=== PATIENT | female | born 1980 | race Caucasian/White ===

== ENCOUNTER 2022-11-26 09:04 | Emergency (ER) | payer OTHER, SELFPAY ==
[2022-11-26 09:18] VITALS: BP 121/55; PULSE 98; RESP 19; TEMP 36.9; O2SAT 100; BMI 31.0
--- NOTE | 2022-11-26 09:21 | ED.BACK ---
HPI - Back Pain/Injury General Chief Complaint: Back Pain/Injury Stated Complaint: severe lower LT side back pain Time Seen by Provider: 11/26/22 09:21 History of Present Illness HPI Narrative: Patient is a 42-year-old healthy female who presents today with left lower back pain and buttock pain. She does not remember any specific injury started hurting yesterday. She was unable to get out of bed this morning. She feels like it could be sciatica she actually does not have numbness or tingling down her leg. It is not radiating around to her abdomen. She is no painful or frequent urination. Definitely hurts to touch and hurts to move. She took ibuprofen earlier in the day. Denies any changes in bowel or bladder habits. Related Data Home Medications Medication Instructions Recorded Confirmed bupropion HCl 150 mg 24 hr tablet, 150 mg PO DAILY 11/26/22 11/26/22 extended release bupropion HCl 150 mg 24 hr tablet, 300 mg PO BEDTIME 11/26/22 11/26/22 extended release desvenlafaxine succinate 100 mg 100 mg PO DAILY 11/26/22 11/26/22 tablet,extended release 24 hr lamotrigine 200 mg tablet 200 mg PO DAILY 11/26/22 11/26/22 trazodone 100 mg tablet 100 mg PO BEDTIME 11/26/22 11/26/22 Previous Rx's Medication Instructions Recorded hydrocodone 5 mg-acetaminophen 325 1 tab PO Q6H PRN pain #10 tabs 11/26/22 mg tablet methocarbamol 750 mg tablet 750 mg PO Q8H PRN muscle spasm #14 11/26/22 tabs ondansetron 4 mg disintegrating 4 mg PO Q8H PRN nausea and 11/26/22 tablet vomiting #10 tabs Allergies Allergy/AdvReac Type Severity Reaction Status Date / Time Penicillins Allergy Swelling Verified 11/26/22 09:24 of Lip/Tongue/Throat Review of Systems Review of Systems ROS Unobtainable: All systems reviewed & are unremarkable except as noted in HPI and below Patient History Social History Smoking Status: Never smoker Exam Initial Vital Signs Initial Vital Signs: Vital Signs Temperature 98.4 F 11/26/22 09:18 Pulse Rate 98 H 11/26/22 09:18 Respiratory Rate 19 11/26/22 09:18 Blood Pressure 121/55 L 11/26/22 09:18 Pulse Oximetry 100 11/26/22 09:18 Oxygen Delivery Method Room Air 11/26/22 09:18 GENERAL: Alert 42-year-old female appears uncomfortable CARDIOVASCULAR: peripheral pulses in tact, cap refill <2 sec RESPIRATORY: No respiratory distress, speaks in full sentences without difficulty ABDOMEN: Soft, nontender, no guarding or rebound BACK: Left buttock and lower lumbar pain pain is reproducible to palpation. Sensation in lower extremities intact EXTREMITIES: Normal range of motion, no clubbing or edema. Neurovascularly intact NEUROLOGICAL: Cranial nerves II through XII grossly intact. Normal gait and speech. SKIN: Warm, dry, no petechiae, no rashes or lesions. Course Orders Ordered: ED Orders 11/26/22 09:57 Ictotest Urine Stat Urinalysis and Microscopic Stat Urine Culture Stat Discontinued Medications Hydrocodone Bitart/Acetaminophen (Hydrocodone/Acet 5/325 Tablet) 1 tab PO NOW ONE Stop: 11/26/22 10:03 Last Admin: 11/26/22 10:22 Dose: 1 tab Documented By: LORY Cyclobenzaprine HCl (Cyclobenzaprine 10 Mg Tablet) 5 mg PO NOW ONE Stop: 11/26/22 10:03 Last Admin: 11/26/22 10:22 Dose: 5 mg Documented By: LORY Ondansetron HCl (Ondansetron 4 Mg Odt) 4 mg SL NOW ONE Stop: 11/26/22 10:03 Last Admin: 11/26/22 10:23 Dose: 4 mg Documented By: LORY Vital Signs Vital signs: Vital Signs - 8 hr 11/26/22 09:18 Temperature 98.4 F Pulse Rate 98 H Respiratory Rate 19 Blood Pressure 121/55 L Pulse Oximetry 100 Oxygen Delivery Method Room Air MDM - Back Pain/Injury Lab Data Labs: Lab Results 11/26/22 11/26/22 Range/Units 09:57 09:57 Urine Color Red Cancelled Urine Appearance Cloudy Cancelled Urine pH 5.5 Cancelled (4.5-8.0) Ur Specific [place] 1.025 Cancelled (1.000-1.035) Urine Protein 1+ H Cancelled (Negative) Urine Glucose (UA) Negative Cancelled (Negative) g/dL Urine Ketones Trace H Cancelled (NEGATIVE) Urine Occult Blood 3+ H Cancelled (Negative) Urine Nitrate Negative Cancelled (Negative) Urine Bilirubin 1+ H Cancelled (NEGATIVE) Ur Bilirubin Confirm Negative (Negative) Urine Urobilinogen 1.0 Cancelled (0.2) E.U./dL Ur Leukocyte Esterase 1+ H Cancelled (NEGATIVE) Urine RBC >100/hpf H Cancelled (0-5/HPF) Urine WBC 5-10/hpf H Cancelled (0-5/HPF) Ur Squamous Epith Cells 1-5 /hpf Cancelled (0-5/HPF) Ur Transition Epith Cell Cancelled Ur Renal Epithelial Cell Cancelled Calcium Oxalate Crystal Cancelled Uric Acid Crystals Cancelled Triple Phos Crystals Cancelled Other Crystals Cancelled Amorphous Sediment Cancelled Urine Bacteria Few (2-10) H Cancelled (None) Hyaline Casts Cancelled Granular Casts Cancelled RBC Casts Cancelled WBC Casts Cancelled Other Casts Cancelled Urine Mucus Cancelled Urine Trichomonas Cancelled Urine Yeast Cancelled Urine Sperm Cancelled Ur Culture Indicated? Specimen cultured Cancelled Micro UA Comment Cancelled Point of Care Testing Test Results Negative MDM Narrative Medical decision making narrative: Patient is 42-year-old female who presents with left buttock pain. Does not remember any specific injury but definitely worse with specific movements and sometimes palpation. No concern for cauda equina at this time probably a piriformis sacral like issue. We discussed stretches heating pad and pain control. She is given [place] and Flexeril here in the ED she took ibuprofen prior to arrival. She has hematuria on her menstrual cycle no painful or frequent urination. No concern for nephrolithiasis she has no flank pain. At this time most likely diagnosis is musculoskeletal back strain. Discharge Plan Departure Patient Disposition: Home Clinical Impression: Strain of lumbar region Instructions: DI for Back Spasm, DI for Back Strain or Sprain Activity Restrictions/Additional Instructions: *You have been diagnosed with back pain *What to do: Recommend heating pad, light activity, light stretches *Continue to take medications as directed--> [facility] Ibuprofen 600 mg every 6 hours if needed for [id number] pain [place] 1-2 tablets every 6 hours if needed for severe pain Methocarbamol 750 mg every 12 hours if needed for muscle spasm Zofran 4 mg every 8 hours if needed for nausea vomiting *Follow up with your primary care provider in 2-3 days or call [phone] *Return to ER if you should have increasing pain numbness tingling weakness changes in bowel habits or any new, worsening or concerning symptoms CONTROLLED SUBSTANCE DISCHARGE (Narcotoic/benzodiazepine/Flexeril/Phenergan) 1. You have been prescribed narcotic medications, it does have acetaminophen/Tylenol/paracetamol in it, DO NOT TAKE MORE THAN 4,00mg in 24 hours of Tylenol. TRAMADOL DOES NOT CONTAIN TYLENOL 2. Please understand that we cannot provide further refills of narcotics, benzodiazepines or controlled substances through the ED and her pain management will need to be through your provider. 3. While on these medications you cannot drive or operate heavy machinery. 4. You cannot sign legal documents or perform any duties such as this. 5. As long as you're taking opiate pain medications he should also be taking a stool softener such as Colace, Dulcolax, MiraLAX or prune juice, to help avoid constipation. Prescriptions: New hydrocodone-acetaminophen 5-325 mg tablet 1 tab PO Q6H PRN (Reason: pain) Qty: 10 0RF methocarbamol 750 mg tablet 750 mg PO Q8H PRN (Reason: muscle spasm) Qty: 14 0RF ondansetron 4 mg tablet,disintegrating 4 mg PO Q8H PRN (Reason: nausea and vomiting) Qty: 10 0RF No Action trazodone 100 mg tablet 100 mg PO BEDTIME Patient Comments: TAKE 1 TO 2 TABLETS BY MOUTH AT BEDTIME bupropion HCl 150 mg tablet extended release 24 hr 300 mg PO BEDTIME Patient Comments: take 1 tablet by mouth every morning WITH 300 MG TABLET desvenlafaxine succinate 100 mg tablet extended release 24 hr 100 mg PO DAILY Patient Comments: take 1 tablet by mouth once daily lamotrigine 200 mg tablet 200 mg PO DAILY Patient Comments: take 1 tablet by mouth once daily bupropion HCl 150 mg tablet extended release 24 hr 150 mg PO DAILY Patient Comments: take 1 tablet by mouth every morning WITH 300 MG TABLET Referrals: Miscellaneous,Doctor, MD [Primary Care Provider] - Stand Alone Forms: Patient Portal/API
[2022-11-26] MEDS: HYDROCODONE/ACET 5/325 TABLET 1 TAB PO (10:22)
[2022-11-26] MEDS: CYCLOBENZAPRINE 10 MG TABLET 5 MG PO (10:22)
[2022-11-26] MEDS: ONDANSETRON 4 MG ODT SL (10:23)
[2022-11-26 10:24] LABS: Appearance Urine UA CLOUDY; Bilirubin Urine UA 1+ (NEGATIVE); Color Urine UA RED; Glucose Urine UA NEGATIVE (Negative); Ketones Urine UA TRACE (NEGATIVE); Leukocyte Esterase Urine UA 1+ (NEGATIVE); Nitrite Urine UA NEGATIVE (Negative); Occult Blood Urine UA 3+ (Negative); Protein Urine UA 1+ (Negative); Specific Gravity Urine UA 1.025 (1.000-1.035); pH Urine UA 5.5 (4.5-8.0)
[2022-11-26 10:26] LABS: Ictotest Urine Negative (Negative); RBC Urine >100/HPF (0-5/HPF)
[2022-11-26 10:27] LABS: Bacteria Urine Few (2-10); Culture Indicated Urine Specimen Cultured; Squamous Epithelial Cell Urine 1-5 /HPF (0-5/HPF); WBC Urine 5-10/HPF (0-5/HPF)
== END 2022-11-26 10:40 | disposition home or self-care (01) ==
PROVIDERS: Emergency Provider Emergency Medicine
DX: S39.012A Strain of muscle, fascia and tendon of lower back, initial encounter (principal); X58.XXXA Exposure to other specified factors, initial encounter
CPT/HCPCS: 81001; 81025; 87086; 99283

== ENCOUNTER 2022-12-01 13:01 | Emergency (ER) | payer OTHER, SELFPAY ==
[2022-12-01 13:05] VITALS: BP 128/72; PULSE 83; RESP 18; TEMP 36.4; O2SAT 99; BMI 31.0
--- NOTE | 2022-12-01 13:23 | DI.RAD.S_ITS ---
PROCEDURE: XR LUMBAR SPINE 2-3V INDICATIONS: Worsening low back pain left-sided radiculopathy TECHNIQUE: 3 views of the lumbar spine were acquired. COMPARISON: None. FINDINGS: Bones: 5 [id number] vertebrae are present. There is normal bony alignment. No vertebral body compression fractures. No suspicious bony lesions. Soft tissues: Overlying bowel gas pattern is normal. No suspicious soft tissue calcifications. IMPRESSION: Unremarkable lumbar spine radiographs Approved by: Anatoly Erickson M.D. on 12/01/2022 at 13:23
--- NOTE | 2022-12-01 13:38 | ED.BACK ---
HPI - Back Pain/Injury <Claudette Alexis, [facility] - Last Filed: 12/01/22 16:06> General Chief Complaint: Back Pain/Injury Stated Complaint: lower back pain Time Seen by Provider: 12/01/22 13:11 History of Present Illness HPI Narrative: This is a 42-year-old female returns to emergency department with worsening low back pain now with worsening sciatica symptoms down her left leg without known trigger. She states that she was seen in the emergency department on 11/26/2022 for low back pain, she was prescribed hydrocodone and a muscle relaxer but with her normal activities yesterday and starting to work out again she develop worsening sciatica symptoms going down her leg, she states that she can barely move or walk because of the spasms and sharp pain she feels with shooting pain down her leg. She denies fever, chills, urinary frequency or urgency, denies incontinence or any stool changes. Denies any upper respiratory symptoms. Denies any rash. Denies weakness. Denies history of substance abuse. States that she is not , her was checked the last time she was here few days ago Related Data Home Medications Medication Instructions Recorded Confirmed bupropion HCl 150 mg 24 hr tablet, 150 mg PO DAILY 11/26/22 11/26/22 extended release bupropion HCl 150 mg 24 hr tablet, 300 mg PO BEDTIME 11/26/22 11/26/22 extended release desvenlafaxine succinate 100 mg 100 mg PO DAILY 11/26/22 11/26/22 tablet,extended release 24 hr lamotrigine 200 mg tablet 200 mg PO DAILY 11/26/22 11/26/22 trazodone 100 mg tablet 100 mg PO BEDTIME 11/26/22 11/26/22 Previous Rx's Medication Instructions Recorded hydrocodone 5 mg-acetaminophen 325 1 tab PO Q6H PRN pain #10 tabs 11/26/22 mg tablet methocarbamol 750 mg tablet 750 mg PO Q8H PRN muscle spasm #14 11/26/22 tabs ondansetron 4 mg disintegrating 4 mg PO Q8H PRN nausea and 11/26/22 tablet vomiting #10 tabs gabapentin 100 mg capsule 100 mg PO TID PRN Sciatica/nerve 12/01/22 pain #40 caps hydrocodone 5 mg-acetaminophen 325 1 tab PO Q6H PRN pain #10 tabs 12/01/22 mg tablet lidocaine 5 % topical patch 1 patch topical DAILY PRN back 12/01/22 (Lidoderm) pain #30 ea ondansetron 4 mg disintegrating 4 mg PO Q8H PRN nausea and 12/01/22 tablet vomiting #10 tabs polyethylene glycol 3350 17 17 g PO DAILY constipation #238 12/01/22 gram/dose oral powder (Miralax) grams Allergies Allergy/AdvReac Type Severity Reaction Status Date / Time Penicillins Allergy Swelling Verified 12/01/22 13:08 of Lip/Tongue/Throat Review of Systems <DALIA Matias - Last Filed: 12/01/22 16:06> Review of Systems ROS Unobtainable: All systems reviewed & are unremarkable except as noted in HPI and below Patient History <DALIA Matias - Last Filed: 12/01/22 16:06> Social History Smoking Status: Never smoker Smoking Status: Never smoker alcohol intake frequency: holidays/special occasions only Substance Use Type: does not use Exam <DALIA Matias - Last Filed: 12/01/22 16:06> Narrative Exam Narrative: Reviewed vitals signs and nursing notes. General: Pleasant, sitting upright, appears uncomfortable, is tearful, sitting upright in wheelchair well groomed, afebrile HEENT: symmetrical facial expressions, moist mucous membranes, neck is supple CV: regular rate and rhythm, warm extremities Respiratory: normal work of breathing, without tachypnea or hypoxia. GI: abdomen soft, nondistended, without CVA tenderness bilaterally. MSK: moves all extremities, no weakness, normal tone, ambulatory without deficit, nontender along her lumbar and sacral spine, no step-offs, without decreased reflexes, left leg lift exacerbate symptoms in her low back causing pain Skin: brisk capillary refill, without rash or wound Neuro: clear speech and normal cognition, A&O x3, GCS 15, no focal motor or sensation deficits Initial Vital Signs Initial Vital Signs: Vital Signs Temperature 97.6 F 12/01/22 13:05 Pulse Rate 83 12/01/22 13:05 Respiratory Rate 18 12/01/22 13:05 Blood Pressure 128/72 12/01/22 13:05 Pulse Oximetry 99 12/01/22 13:05 Oxygen Delivery Method Room Air 12/01/22 13:05 <Peterson Louise DO - Last Filed: 12/07/22 01:46> Initial Vital Signs Initial Vital Signs: Vital Signs Temperature 97.6 F 12/01/22 13:05 Pulse Rate 83 12/01/22 13:05 Respiratory Rate 18 12/01/22 13:05 Blood Pressure 128/72 12/01/22 13:05 Pulse Oximetry 99 12/01/22 13:05 Oxygen Delivery Method Room Air 12/01/22 13:05 Course <DALIA Matias - Last Filed: 12/01/22 16:06> Orders Ordered: Discontinued Medications Gabapentin (Gabapentin 100 Mg Capsule) 100 mg PO NOW ONE Stop: 12/01/22 13:20 Last Admin: 12/01/22 14:06 Dose: 100 mg Documented By: VANESA Ketorolac Tromethamine (Ketorolac 30 Mg/Ml Vial) 30 mg IM NOW ONE Stop: 12/01/22 13:20 Last Admin: 12/01/22 13:44 Dose: 30 mg Documented By: VANESA Lidocaine (Lidocaine Patch 1 Each Adh..Patch) 1 each TOP NOW ONE Stop: 12/01/22 13:20 Last Admin: 12/01/22 13:44 Dose: 1 each Documented By: VANESA Ondansetron HCl (Ondansetron 4 Mg Odt) 4 mg SL NOW ONE Stop: 12/01/22 14:14 Last Admin: 12/01/22 14:23 Dose: Not Given Documented By: VANESA Oxycodone/Acetaminophen (Oxycodone/Acetaminophen 5/325 Tablet) 1 tab PO NOW ONE Stop: 12/01/22 13:20 Last Admin: 12/01/22 13:46 Dose: 1 tab Documented By: VANESA Prednisone (Prednisone 20 Mg Tablet) 60 mg PO NOW ONE Stop: 12/01/22 13:20 Last Admin: 12/01/22 13:45 Dose: 60 mg Documented By: VANESA Vital Signs Vital signs: Vital Signs - 8 hr 12/01/22 13:05 12/01/22 14:38 Temperature 97.6 F Pulse Rate 83 73 Respiratory Rate 18 18 Blood Pressure 128/72 100/56 L Pulse Oximetry 99 99 Oxygen Delivery Method Room Air Room Air <Peterson Louise DO - Last Filed: 12/07/22 01:46> Orders Ordered: Discontinued Medications Gabapentin (Gabapentin 100 Mg Capsule) 100 mg PO NOW ONE Stop: 12/01/22 13:20 Last Admin: 12/01/22 14:06 Dose: 100 mg Documented By: VANESA Ketorolac Tromethamine (Ketorolac 30 Mg/Ml Vial) 30 mg IM NOW ONE Stop: 12/01/22 13:20 Last Admin: 12/01/22 13:44 Dose: 30 mg Documented By: VANESA Lidocaine (Lidocaine Patch 1 Each Adh..Patch) 1 each TOP NOW ONE Stop: 12/01/22 13:20 Last Admin: 12/01/22 13:44 Dose: 1 each Documented By: VANESA Ondansetron HCl (Ondansetron 4 Mg Odt) 4 mg SL NOW ONE Stop: 12/01/22 14:14 Last Admin: 12/01/22 14:23 Dose: Not Given Documented By: VANESA Oxycodone/Acetaminophen (Oxycodone/Acetaminophen 5/325 Tablet) 1 tab PO NOW ONE Stop: 12/01/22 13:20 Last Admin: 12/01/22 13:46 Dose: 1 tab Documented By: VANESA Prednisone (Prednisone 20 Mg Tablet) 60 mg PO NOW ONE Stop: 12/01/22 13:20 Last Admin: 12/01/22 13:45 Dose: 60 mg Documented By: VANESA Vital Signs Vital signs: Vital Signs - 8 hr 12/01/22 13:05 12/01/22 14:38 Temperature 97.6 F Pulse Rate 83 73 Respiratory Rate 18 18 Blood Pressure 128/72 100/56 L Pulse Oximetry 99 99 Oxygen Delivery Method Room Air Room Air MDM - Back Pain/Injury <DALIA Matias - Last Filed: 12/01/22 16:06> Lab Data Labs: Lab Results 12/01/22 Range/Units 14:22 Urine RBC 1-5/hpf D (0-5/HPF) Urine WBC 0-1/hpf (0-5/HPF) Ur Squamous Epith Cells None seen (0-5/HPF) Urine Bacteria Occasional (0-1) (None) Ur Culture Indicated? Specimen cultured Point of Care Testing Test Results Negative Urine Dip Bedside Urine Glucose Negative Bedside Urine Bilirubin - Negative Bedside Urine Ketone - Negative Urine Specific Paxton 1.010 Bedside Urine Occult Blood - Negative Bedside Urine pH 8.0 Bedside Urine Protein - Negative Bedside Urine Urobilinogen - Negative Bedside Urine Nitrite - Negative Bedside Urine Leukocytes - Negative Esterase Imaging Data Lumbar xr: Radiologist's Impression: PROCEDURE:? XR LUMBAR SPINE 2-3V ? INDICATIONS:? Worsening low back pain left-sided radiculopathy ? TECHNIQUE:? 3 views of the lumbar spine were acquired.? ? COMPARISON:? None. ? FINDINGS:? ? Bones:? 5 [id number] vertebrae are present.? There is normal bony alignment.? No vertebral body compression fractures.? No suspicious bony lesions.? ? Soft tissues:? Overlying bowel gas pattern is normal.? No suspicious soft tissue calcifications.? ? ? IMPRESSION:? Unremarkable lumbar spine radiographs ? ? ? Approved by: Anatoly Erickson M.D. on 12/01/2022 at 13:23? MDM Narrative Medical decision making narrative: Chief Complaint: low back pain Differential diagnoses considered but not limited to: disc injury/herniation, radiculopathy, muscular sprain, chronic pain, malignancy, spondyloarthropathy, nerve compression, acute fracture, urinary tract infection, osteoarthritis, degenerative disc disease, cauda equina, osteomyelitis, epidural abscess, spinal stenosis, ligamental injury. I have reviewed the patient's vital signs and nursing notes as well as prior records if available. Prior Charts reviewed: From 11/26/2022 My interpretation of Imaging: Lumbar x-ray is negative for acute abnormality Course of care: Patient was treated with prednisone, Percocet, lidocaine patch, Toradol and gabapentin for her pain, x-rays were obtained as she is not had imaging of her lumbar spine before and her symptoms have only worsened. Considered MR but patient does not have red flag symptoms of back pain or signs of cauda equina, she does not have weakness, urinary or stool changes, fever chills. Her exam is nontender to palpation. Suspect likely musculoskeletal etiology and acute exacerbation of chronic low back pain. Patient's straight leg raise test was positive. No back pain red flags on history or physical. No history of IV substance use, or bony tenderness to palpation, no trauma, no bony tenderness to palpation, and are afebrile. No bowel or urinary incontinence or retention, no saddle anesthesia, no new/worsening distal weakness, decreased reflexes or foot drop. Pt is nontoxic appearing. Patient has soft tissue tenderness to palpation. Pt is neurovascularly intact distally, without decreased reflexes or strength, and without immunosuppression or evidence of infection, peritoneal signs, hypertensive crisis, incontinence, or meningeal signs. As patient to leave a urine sample, her last urine sample on 11/26/2022 there was large amount of blood but there was bacteria and leukocyte esterase as well. She was on her menses at that time. She states that she stood up today in the x-ray and felt lightheaded and so she will leave another urine sample for evaluation of urinary tract infection. Urine dip without concern for infection Urine microscopy is negative for abnormality Patient is recommended to establish care with a primary care provider and she was given contact information to set this up, she is given contact information for Dr. Knapp to help her with her pain as she may benefit from an MRI if her symptoms do not improve,, she was referred to [facility] for further evaluation for referral to physical therapy and/or advanced imaging as indicated. She was prescribed prednisone, gabapentin as needed, hydrocodone Patient's symptoms improved over duration of stay with above-stated therapies. Discharge diagnosis, return precautions and plan discussed with patient followed by verbalization of understanding. Social considerations that may affect disposition: none Questions are addressed and there is agreement with the plan and for follow-up with PCP and with Orthopedics for outpatient physical therapy and advanced imaging if indicated. Patient is appropriate for outpatient management. MIPS: This encounter doesn't have any diagnosis' associated with MIPS criteria. <Peterson Louise DO - Last Filed: 12/07/22 01:46> Lab Data Labs: Lab Results 12/01/22 Range/Units 14:22 Urine RBC 1-5/hpf D (0-5/HPF) Urine WBC 0-1/hpf (0-5/HPF) Ur Squamous Epith Cells None seen (0-5/HPF) Urine Bacteria Occasional (0-1) (None) Ur Culture Indicated? Specimen cultured Point of Care Testing Test Results Negative Urine Dip Bedside Urine Glucose Negative Bedside Urine Bilirubin - Negative Bedside Urine Ketone - Negative Urine Specific Pa[place] 1.010 Bedside Urine Occult Blood - Negative Bedside Urine pH 8.0 Bedside Urine Protein - Negative Bedside Urine Urobilinogen - Negative Bedside Urine Nitrite - Negative Bedside Urine Leukocytes - Negative Esterase Discharge Plan Departure Patient Disposition: Home Clinical Impression: Acute left lumbar radiculopathy Instructions: DI for Back Pain With Sciatica Activity Restrictions/Additional Instructions: *You have been diagnosed with a strain of your low back causing radiculopathy/sciatica symptoms down her left leg. When you nerve pain coming from the L2-L4 region, it typically will wrap around to the anterior thigh and right inguinal region like you have. Please take prednisone each morning with food and water, I have given you Toradol to take instead of ibuprofen every 8 hours as needed with food and water, please use pain pills and gabapentin as needed for your nerve pain. Lidocaine patches can take the edge off, use heat, gentle activity but avoid going back to the gym or working out until you are free of this flare. Any movement can trigger this to worsen at this time. Please follow-up with your primary care provider for a referral to physical therapy after you are well for ongoing help with this probable disc issue in your low back. You can follow-up with Dr. Graham from our pain management group for evaluation of this low back pain as well. The urine is perfectly clear today, please focus on hydration there is a phone number down below to call and establish care with 1 of the primary care providers. Hopefully this is helpful but a warning that it may take a considerable amount of time to get in for your 1st appointment. Please come back to the emergency department for any other needs or if your pain is not improving. Please take MiraLax twice a day until you have soft stools and then decrease to once a day and titrate for soft stools. Constipation can make all the so much worse. *What to do: *Please continue to take your regular medications as directed. [ x] New medication prescriptions sent to your pharmacy: [[facility] [ ] New medication written as a paper prescription [ ] No new medications given *Please call and schedule follow up with your primary care provider in 2-3 days, at least for an update. Let them know you were seen in the Emergency Department for the above problem. We will electronically transmit a record of today's note if your PCP or specialist is in our system. *If you do not have a primary care provider please contact [phone] to establish care with one of the [facility] primary care providers. *Return to the Emergency Department for worsening symptoms, inability to keep liquids down, fever greater than 101F, chills, or other concerning symptom. Prescriptions: New gabapentin 100 mg capsule 100 mg PO TID PRN (Reason: Sciatica/nerve pain) Qty: 40 0RF lidocaine [Lidoderm] 5 % adhesive patch,medicated 1 patch topical DAILY PRN (Reason: back pain) Qty: 30 0RF Rx Instructions: leave on most painful area for up to 12 hrs, apply to low back hydrocodone-acetaminophen 5-325 mg tablet 1 tab PO Q6H PRN (Reason: pain) Qty: 10 0RF polyethylene glycol 3350 [Miralax] 17 gram/dose powder 17 g PO DAILY Qty: 238 0RF ondansetron 4 mg tablet,disintegrating 4 mg PO Q8H PRN (Reason: nausea and vomiting) Qty: 10 0RF Rx Instructions: May worsen constipation No Action trazodone 100 mg tablet 100 mg PO BEDTIME Patient Comments: TAKE 1 TO 2 TABLETS BY MOUTH AT BEDTIME bupropion HCl 150 mg tablet extended release 24 hr 300 mg PO BEDTIME Patient Comments: take 1 tablet by mouth every morning WITH 300 MG TABLET desvenlafaxine succinate 100 mg tablet extended release 24 hr 100 mg PO DAILY Patient Comments: take 1 tablet by mouth once daily lamotrigine 200 mg tablet 200 mg PO DAILY Patient Comments: take 1 tablet by mouth once daily bupropion HCl 150 mg tablet extended release 24 hr 150 mg PO DAILY Patient Comments: take 1 tablet by mouth every morning WITH 300 MG TABLET hydrocodone-acetaminophen 5-325 mg tablet 1 tab PO Q6H PRN (Reason: pain) Qty: 10 0RF methocarbamol 750 mg tablet 750 mg PO Q8H PRN (Reason: muscle spasm) Qty: 14 0RF ondansetron 4 mg tablet,disintegrating 4 mg PO Q8H PRN (Reason: nausea and vomiting) Qty: 10 0RF Referrals: [facility] [Provider Group] (There is an office on [address] in [place]. Please follow-up for worsening.) [facility] [Outside] Iggy Graham MD [Physician] - Stand Alone Forms: Patient Portal/API <Peterson Louise DO - Last Filed: 12/07/22 01:46> Cosign ED Attending Enzo Attestation: I was immediately available in the department for consultation. Documentation has been reviewed. I agree with assessment and plan.
[2022-12-01] MEDS: LIDOCAINE PATCH 1 EACH ADH..PATCH TOP (13:44)
[2022-12-01] MEDS: KETOROLAC 30 MG/ML VIAL IM (13:44)
[2022-12-01] MEDS: predniSONE 20 MG TABLET 60 MG PO (13:45)
[2022-12-01] MEDS: OXYCODONE/ACETAMINOPHEN 5/325 TABLET 1 TAB PO (13:46)
--- NOTE | 2022-12-01 13:53 | PC.NURSE ---
Patient has questions about medications prescribed in ED and any possible interactions after administering prednisone and percocet medications. This RN stops administering meds. Pt states her home meds are trazodone, desvenlafaxine, lamotrigine, and bupropion. She is unsure of the exact doses of each of these meds. This RN called pharmacist [place] who confirmed OK to administer current prescribed medications by provider Crew.
[2022-12-01] MEDS: GABAPENTIN 100 MG CAPSULE PO (14:06)
[2022-12-01 14:38] VITALS: BP 100/56; PULSE 73; RESP 18; O2SAT 99
[2022-12-01 14:46] LABS: Bacteria Urine Occasional (0-1); RBC Urine 1-5/HPF (0-5/HPF); Squamous Epithelial Cell Urine None Seen (0-5/HPF); WBC Urine 0-1/HPF (0-5/HPF)
[2022-12-01 14:47] LABS: Culture Indicated Urine Specimen Cultured
== END 2022-12-01 14:48 | disposition home or self-care (01) ==
PROVIDERS: Emergency Provider Nurse Practitioner Critical Care Medicine
DX: M54.16 Radiculopathy, lumbar region (principal)
CPT/HCPCS: 72100; 81003; 81015; 81025; 87086; 96372; 99283; 99284; J1885

== ENCOUNTER 2023-01-24 13:28 | Emergency (ER) | payer OTHER, SELFPAY ==
[2023-01-24 13:31] VITALS: BP 130/68; PULSE 91; RESP 15; TEMP 36.7; O2SAT 99; BMI 31.1
--- NOTE | 2023-01-24 13:54 | DI.RAD.S_ITS ---
PROCEDURE: XR CHEST 2V INDICATIONS: cough, wheeze x 5 days TECHNIQUE: 2 views of the chest were acquired. COMPARISON: None. FINDINGS: Surgical changes and devices: None. Lungs and pleura: Lungs are clear. No pleural effusions or pneumothorax. Mediastinum: Mediastinal contours are normal. Heart size is normal. Bones and chest wall: No suspicious bony abnormalities. Soft tissues appear unremarkable. IMPRESSION: No acute cardiopulmonary disease. Dictated by: Karen Guzmán M.D. on 01/24/2023 at 14:37 Approved by: Karen Guzmán M.D. on 01/24/2023 at 14:37
--- NOTE | 2023-01-24 13:54 | ED_ITS ---
HPI - URI/Sore Throat <Michelle Rivas PA-C - Last Filed: 01/24/23 15:50> General Chief Complaint: Upper Respiratory Symptoms Stated Complaint: cough/SOB/whezing/pain from cough T-4 getting wors Time Seen by Provider: 01/24/23 13:47 Source: patient Mode of arrival: Ambulatory History of Present Illness HPI Narrative: Patient is a 42-year-old female who presents today with 5 days of cough, shortness of breath, and wheezing. She is a former smoker, quit approximately 10 years ago. She saw a telehealth provider 2 days ago, at which point she had a negative home COVID test, and was prescribed prednisone for 3 days. She does not feel any better after the prednisone. She is been using an albuterol inhaler at home as needed with minimal improvement in her wheezing. She reports she feels burning pain when she coughs in the middle of her chest. She endorses a fever on Friday for which she took ibuprofen and it resolved and has not recurred. She reports getting bronchitis about once a year, but has no history of asthma or COPD. She does not use albuterol except when she has this bronchitis. She presents today because she feels like she is not getting better, despite prednisone, and wonders if she may have an infection. Related Data Home Medications Medication Instructions Recorded Confirmed bupropion HCl 150 mg 24 hr tablet, 150 mg PO DAILY 11/26/22 11/26/22 extended release bupropion HCl 150 mg 24 hr tablet, 300 mg PO BEDTIME 11/26/22 11/26/22 extended release desvenlafaxine succinate 100 mg 100 mg PO DAILY 11/26/22 11/26/22 tablet,extended release 24 hr lamotrigine 200 mg tablet 200 mg PO DAILY 11/26/22 11/26/22 trazodone 100 mg tablet 100 mg PO BEDTIME 11/26/22 11/26/22 Previous Rx's Medication Instructions Recorded hydrocodone 5 mg-acetaminophen 325 1 tab PO Q6H PRN pain #10 tabs 11/26/22 mg tablet methocarbamol 750 mg tablet 750 mg PO Q8H PRN muscle spasm #14 11/26/22 tabs ondansetron 4 mg disintegrating 4 mg PO Q8H PRN nausea and 11/26/22 tablet vomiting #10 tabs gabapentin 100 mg capsule 100 mg PO TID PRN Sciatica/nerve 12/01/22 pain #40 caps hydrocodone 5 mg-acetaminophen 325 1 tab PO Q6H PRN pain #10 tabs 12/01/22 mg tablet lidocaine 5 % topical patch 1 patch topical DAILY PRN back 12/01/22 (Lidoderm) pain #30 ea ondansetron 4 mg disintegrating 4 mg PO Q8H PRN nausea and 12/01/22 tablet vomiting #10 tabs polyethylene glycol 3350 17 17 g PO DAILY constipation #238 12/01/22 gram/dose oral powder (Miralax) grams azithromycin 250 mg tablet See Rx Instructions PO .COMPLEX #6 01/24/23 (Zithromax Z-Fredi) tabs Allergies Allergy/AdvReac Type Severity Reaction Status Date / Time Penicillins Allergy Swelling Verified 01/24/23 13:33 of Lip/Tongue/Throat Review of Systems <Michelle Rivas PA-C - Last Filed: 01/24/23 15:50> Review of Systems ROS Unobtainable: All systems reviewed & are unremarkable except as noted in HPI and below Patient History <Michelle Rivas PA-C - Last Filed: 01/24/23 15:50> Social History Smoking Status: Former smoker Smoking Status: Former smoker alcohol intake frequency: holidays/special occasions only Substance Use Type: does not use Exam <Michelle Rivas PA-C - Last Filed: 01/24/23 15:50> Narrative Exam Narrative: GENERAL: 42 year old patient appears stated age. Well-developed patient. NEURO: AOx3. CARDIOVASCULAR: Regular rate and rhythm without murmurs, gallops, or rubs. RESPIRATORY: Bilateral inspiratory wheeze, no crackles. Mild shortness of breath when speaking in full sentences. EXTREMITIES: No edema or joint tenderness. SKIN: No rash or erythema of visible areas Initial Vital Signs Initial Vital Signs: Vital Signs Temperature 98.0 F 01/24/23 13:31 Pulse Rate 91 H 01/24/23 13:31 Respiratory Rate 15 01/24/23 13:31 Blood Pressure 130/68 01/24/23 13:31 Pulse Oximetry 99 01/24/23 13:31 Oxygen Delivery Method Room Air 01/24/23 13:31 <Reginaldo Donohue DO - Last Filed: 01/24/23 17:25> Initial Vital Signs Initial Vital Signs: Vital Signs Temperature 98.0 F 01/24/23 13:31 Pulse Rate 91 H 01/24/23 13:31 Respiratory Rate 15 01/24/23 13:31 Blood Pressure 130/68 01/24/23 13:31 Pulse Oximetry 99 01/24/23 13:31 Oxygen Delivery Method Room Air 01/24/23 13:31 Course <Michelle Rivas PA-C - Last Filed: 01/24/23 15:50> Orders Ordered: ED Orders 01/24/23 13:54 XR chest 2V Stat 01/24/23 15:40 COVID19 -Nasal RAPID Stat Discontinued Medications Albuterol/Ipratropium (Albuterol/Ipratropium 3 Ml Ampul) 3 ml INH NOW ONE Stop: 01/24/23 13:55 Last Admin: 01/24/23 14:13 Dose: 3 ml Documented By: HATTIE Vital Signs Vital signs: Vital Signs - 8 hr 01/24/23 13:31 01/24/23 14:13 01/24/23 15:40 Temperature 98.0 F Pulse Rate 91 H 88 68 Respiratory Rate 15 20 16 Blood Pressure 130/68 128/72 Pulse Oximetry 99 98 97 Oxygen Delivery Method Room Air Room Air Room Air Oxygen Flow Rate 0 Fraction of Inspired Oxygen 21 <Reginaldo Donohue DO - Last Filed: 01/24/23 17:25> Orders Ordered: ED Orders 01/24/23 13:54 XR chest 2V Stat 01/24/23 15:40 COVID19 -Nasal RAPID Stat Discontinued Medications Albuterol/Ipratropium (Albuterol/Ipratropium 3 Ml Ampul) 3 ml INH NOW ONE Stop: 01/24/23 13:55 Last Admin: 01/24/23 14:13 Dose: 3 ml Documented By: HATTIE Vital Signs Vital signs: Vital Signs - 8 hr 01/24/23 13:31 01/24/23 14:13 01/24/23 15:40 Temperature 98.0 F Pulse Rate 91 H 88 68 Respiratory Rate 15 20 16 Blood Pressure 130/68 128/72 Pulse Oximetry 99 98 97 Oxygen Delivery Method Room Air Room Air Room Air Oxygen Flow Rate 0 Fraction of Inspired Oxygen 21 MDM - URI/Sore Throat <Michelle Rivas PA-C - Last Filed: 01/24/23 15:50> Lab Data Labs: Lab Results 01/24/23 Range/Units 15:40 SARS-CoV-2 (PCR) Negative (Negative) Imaging Data Chest x-ray: Radiologist's Impression: PROCEDURE:? XR CHEST 2V ? INDICATIONS:? cough, wheeze x 5 days ? TECHNIQUE:? 2 views of the chest were acquired.? ? COMPARISON:? None. ? FINDINGS:? ? Surgical changes and devices:? None.? ? Lungs and pleura:? Lungs are clear.? No pleural effusions or pneumothorax.? ? Mediastinum:? Mediastinal contours are normal.? Heart size is normal.? ? Bones and chest wall:? No suspicious bony abnormalities.? Soft tissues appear unremarkable.? ? IMPRESSION:? No acute cardiopulmonary disease. ? ? Dictated by: Karen Guzmán M.D. on 01/24/2023 at 14:37 ? ? Approved by: Karen Guzmán M.D. on 01/24/2023 at 14:37 ? MDM Narrative Medical decision making narrative: Multiple etiologies for patient's symptoms considered including, but not limited to: Viral respiratory infection, COVID, pneumonia, bronchitis, COPD. Based on exam and studies today, I suspect she has bronchitis. Discussed with patient that bronchitis is generally viral will resolve in 1-3 weeks with supportive care. Patient feels very strongly that she is not getting better despite prednisone and requests antibiotics. Discussed risk of antibiotic resistance and likelihood that she will improve regardless of antibiotics, but will prescribe Z-Fredi which she may take if she continues to not improve. She can continue to use her albuterol inhaler as needed as she did improve after her DuoNeb in the ER today and was given a spacer by Respiratory therapy to use with her MDI. COVID swab was unable to be processed and recent prior to discharge transfer meds: We will call her if COVID test results positive, at which point I would not recommend taking the antibiotics. She has no underlying lung condition or immunosuppression that would indicate need for antiviral therapy. Patient's symptoms improved over duration of stay with above-stated therapies. Findings and discharge diagnosis discussed with patient/family followed by verbalization of understanding Return precautions discussed with patient/family whom verbalize understanding of diagnosis and plan <Reginaldo Donohue, DO - Last Filed: 01/24/23 17:25> Lab Data Labs: Lab Results 01/24/23 Range/Units 15:40 SARS-CoV-2 (PCR) Negative (Negative) Discharge Plan Departure Patient Disposition: Home Clinical Impression: Bronchitis Instructions: DI for Acute Bronchitis Activity Restrictions/Additional Instructions: *You have been diagnosed with bronchitis. I suggest you can continue supportive care, [id number] antitussives and rest but I will prescribe a short course of antibiotics which you may take if you continued to not improve. You can continue to use your albuterol inhaler as needed for wheezing and consider taking Tylenol and or ibuprofen for pain. *What to do: *Please continue to take your regular medications as directed. [x ] New medication prescriptions sent to your pharmacy: [[facility]] [ ] New medication written as a paper prescription [ ] No new medications given *Please follow up with your primary care provider in 2-3 days, call for an appointment. Let them know you were seen in the Emergency Department and that we ask that you be seen in follow up. We will electronically transmit a record of today's note if your PCP is in our system *If you do not have a primary care provider please contact the [facility] Resource line at [phone]. They will ask some questions about your medical history and help get you set up with a doctor in the community. *Return to Emergency Department if you should have any new, worsening or concerning symptoms, such as [fever greater than 101 F, shaking chills, worsening pain, persistent vomiting or other bothersome symptoms] Prescriptions: New azithromycin [Zithromax Z-Fredi] 250 mg tablet See Rx Instructions .ROUTE .COMPLEX Qty: 6 0RF Rx Instructions: For 250 mg dose pack: take 500 mg today (day 1), then 250 mg for 4 days (days 2-5) No Action trazodone 100 mg tablet 100 mg PO BEDTIME Patient Comments: TAKE 1 TO 2 TABLETS BY MOUTH AT BEDTIME bupropion HCl 150 mg tablet extended release 24 hr 300 mg PO BEDTIME Patient Comments: take 1 tablet by mouth every morning WITH 300 MG TABLET desvenlafaxine succinate 100 mg tablet extended release 24 hr 100 mg PO DAILY Patient Comments: take 1 tablet by mouth once daily lamotrigine 200 mg tablet 200 mg PO DAILY Patient Comments: take 1 tablet by mouth once daily bupropion HCl 150 mg tablet extended release 24 hr 150 mg PO DAILY Patient Comments: take 1 tablet by mouth every morning WITH 300 MG TABLET hydrocodone-acetaminophen 5-325 mg tablet 1 tab PO Q6H PRN (Reason: pain) Qty: 10 0RF methocarbamol 750 mg tablet 750 mg PO Q8H PRN (Reason: muscle spasm) Qty: 14 0RF ondansetron 4 mg tablet,disintegrating 4 mg PO Q8H PRN (Reason: nausea and vomiting) Qty: 10 0RF gabapentin 100 mg capsule 100 mg PO TID PRN (Reason: Sciatica/nerve pain) Qty: 40 0RF lidocaine [Lidoderm] 5 % adhesive patch,medicated 1 patch topical DAILY PRN (Reason: back pain) Qty: 30 0RF Rx Instructions: leave on most painful area for up to 12 hrs, apply to low back hydrocodone-acetaminophen 5-325 mg tablet 1 tab PO Q6H PRN (Reason: pain) Qty: 10 0RF polyethylene glycol 3350 [Miralax] 17 gram/dose powder 17 g PO DAILY Qty: 238 0RF ondansetron 4 mg tablet,disintegrating 4 mg PO Q8H PRN (Reason: nausea and vomiting) Qty: 10 0RF Rx Instructions: May worsen constipation Referrals: Miscellaneous,Doctor, MD [Primary Care Provider] - Stand Alone Forms: Patient Portal/API <Reginaldo Donohue DO - Last Filed: 01/24/23 17:25> [facility] Dr Donohue Co-Sign Statement: I was available for consultation during this patient's emergency department visit. This chart is signed by myself for administrative purposes only. I did not have direct contact with this patient during this visit. They were seen independently by the APC.
[2023-01-24 14:13] VITALS: PULSE 88; RESP 20; O2SAT 98
[2023-01-24] MEDS: ALBUTEROL/IPRATROPIUM 3 ML AMPUL INH (14:13)
[2023-01-24 15:40] VITALS: BP 128/72; PULSE 68; RESP 16; O2SAT 97
[2023-01-24 16:02] LABS: COVID19 -Nasal RAPID Negative (Negative)
== END 2023-01-24 15:47 | disposition home or self-care (01) ==
PROVIDERS: Emergency Provider Physician Assistant
DX: J40 Bronchitis, not specified as acute or chronic (principal); Z87.891 Personal history of nicotine dependence; Z20.822 Contact with and (suspected) exposure to COVID-19
CPT/HCPCS: 71046; 87635; 99283; C9803